=== PATIENT | female | born 2000 | race Caucasian/White ===

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

== ENCOUNTER → 2022-06-04 12:13 | Outpatient (BNVA) | payer OTHER, MEDICAID, SELFPAY | PROVIDERS: Visit Provider Nurse Practitioner Family | DX: N93.9 Abnormal uterine and vaginal bleeding, unspecified (principal) | CPT/HCPCS: 81025; 85018 ==

== ENCOUNTER → 2023-01-07 10:44 | Outpatient (BNVA) | payer MEDICAID, SELFPAY | PROVIDERS: Visit Provider Nurse Practitioner | DX: R05.9 Cough, unspecified (principal); B34.9 Viral infection, unspecified | CPT/HCPCS: 87400; 87426 ==

== ENCOUNTER → 2023-06-09 16:28 | Outpatient (BNVA) | payer OTHER, SELFPAY | PROVIDERS: Visit Provider Nurse Practitioner Psychiatric/Mental Health | DX: Z03.89 Encounter for observation for other suspected diseases and conditions ruled out (principal); F32.2 Major depressive disorder, single episode, severe without psychotic features; F43.10 Post-traumatic stress disorder, unspecified | CPT/HCPCS: 81025 ==

== ENCOUNTER 2024-12-15 19:00 | Inpatient (IN) | payer BC, MEDICAID, SELFPAY ==
[2024-12-15] VITALS (60 sets, daily range): BP systolic 96–135; BP diastolic 51–87; PULSE 68–111; RESP 8–18; TEMP 36.6–36.9; O2SAT 92–99; BMI 32.3
[2024-12-15 11:17] LABS: Hematocrit 32.5 % (36-47); Hemoglobin 10.70 g/dL (11.27-16.99); Mean Corpuscular HGB Conc 32.9 g/dL (30-55); Mean Corpuscular Hemoglobin 27.8 pg (27-33); Mean Corpuscular Volume 84.4 fl (85-98); Nucleated Red Blood Cells % 0 %; Platelet Count 211 10^3/cmm (157-399); Red Blood Count 3.85 10^6/uL (3.85-5.65); White Blood Count 10.82 10^3/uL (3.29-11.43)
--- NOTE | 2024-12-15 12:45 | PM.OBGYHP ---
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 Patient had rupture membranes earlier this morning. Patient states that she started to feel some contractions but nothing significant or regular at this time. Kermit vaginal exam showed 2 cm dilation which was what she was in the office 3 days ago. Forebag was noted. Patient has had no complications during and has had excellent care. Present Details : 2 Para: 0 Labs Rubella: Immune RPR: Negative GBS: Negative Review of Systems Const: Denies: fever(s), chills or body aches Card: Denies: chest pain Resp: Denies: dyspnea or wheezing GI: Reports: abdominal pain; Denies: nausea, vomiting or diarrhea : Reports: dysuria, urinary frequency, urinary urgency and hematuria; Denies: flank pain Skin/Breast: Denies: rash Medications/Allergies Home Medications ?Medication ?Instructions ?Recorded ?Confirmed ?Last Taken ?Type escitalopram oxalate 20 mg tablet 20 mg PO DAILY #30 tabs 03/03/24 03/03/24 Unknown Rx famotidine 10 mg tablet 10 mg PO DAILY 12/15/24 12/15/24 12/15/24 08:30 History no.58-iron bisglycinate cap PO 12/15/24 12/15/24 08:30 History 10 mg iron-folic acid 400 mcg capsule Allergies Allergy/AdvReac Type Severity Reaction Status Date / Time Penicillins Allergy Unknown Verified 03/03/24 11:21 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 PFSH: Medical History (Updated 12/15/24 @ 12:50 by Baljinder Dee MD) MDD (major depressive disorder), single episode, severe Psychiatric care Social History Smoking and tobacco/nicotine status: unknown if used tobacco/nicotine Vitals/I&O/Wt Last Vital Signs Pulse 98 12/15/24 12:42 BP 117/77 12/15/24 12:42 O2 Del Method Room Air 12/15/24 10:30 Weight last 48 hrs Weight 82.781 kg Physical Exam Const: COMMON NORMALS: no acute distress, average body habitus and patient oriented x3 Resp: COMMON NORMALS: normal respiratory effort, No retractions and No use of accessory muscles Cardio: COMMON NORMALS: no JVD, regular rate and regular rhythm GI: OTHER: Gravid uterus Extremity: COMMON NORMALS: normal to inspection and no clubbing, cyanosis or edema Neuro: COMMON NORMALS: moves all extremities, no focal motor deficits and no sensory deficits noted Psych: COMMON NORMALS: mental status grossly normal and cooperative Skin: COMMON NORMALS: no rashes or lesions noted Data 12/15/24 11:00 Results Labs OB ([facility]): Hct, (36-47) 32.5 % L Today Hgb, (11.27-16.99) 10.70 g/dL L Today Plt Count, (157-399) 211 10^3/cmm Today HCG, Qual, (Negative) Negative 06/09/23 A&P Assessment and plan 1. Multigravida in third trimester: 2. 38 weeks gestation of : The patient has positive rupture membranes. Since patient had a forebag this was ruptured with an amnio hook. Patient request that we do minimal intervention to augment labor if at all possible so we will monitor at this time. Anticipate that she will progress without any further intervention at this time. Proceed with routine labor management. PDMP PDMP Reviewed: Not Reviewed Attestations Medical Necessity Statement*: Patient admitted for rupture membranes. Anticipate at least 1 midnight stay Coding Level of Care Code Acute Code for Chg Fwd Diagnoses Multigravida in third trimester Z34.83 38 weeks gestation of Z3A.38
--- NOTE | 2024-12-15 15:59 | ANES.PREANE2 ---
Pre-Anesthetic Assessment Height/Weight: Height 1.6 m Weight 82.781 kg Temp Pulse Resp BP O2 Del Method 98.3 F 90 18 123/79 Room Air 12/15/24 15:15 12/15/24 15:46 12/15/24 15:15 12/15/24 15:46 12/15/24 10:30 Epidural Familial anesthetic complications: None Was Beta Mohini taken within 24 hours: N/A Was Clonidine taken within 24 hours: N/A Last intake: 929 Solids Social No alcohol and No tobacco Exam alert, oriented x 3, clear to auscultation bilaterally and regular rate & rhythm Airway Submandibular: within normal limits Cervical ROM: within normal limits Mallampati: Class II Dentition: full History/ROS No significant history except as noted and No significant complaints Pulmonary Seasonal allergies CV/HEM None reported None reported Hepatic None reported GI Gastroesophageal Reflux Disease (Gestational) Metabolic None reported Musc/skel None reported Neuropsych Anxiety and Depression Anesthetic Plan ASA status: 2 Anesthesia: Anesthesia Evaluation, General and Regional (specify below) (Epidural) Risk of > 500 ml blood loss (7ml/kg in children): Yes, adequate IV access and fluids planned Medications/Allergies Home Medications ?Medication ?Instructions ?Recorded ?Confirmed ?Last Taken ?Type escitalopram oxalate 20 mg tablet 20 mg PO DAILY #30 tabs 03/03/24 03/03/24 Unknown Rx famotidine 10 mg tablet 10 mg PO DAILY 12/15/24 12/15/24 12/15/24 08:30 History no.58-iron bisglycinate cap PO 12/15/24 12/15/24 08:30 History 10 mg iron-folic acid 400 mcg capsule Allergies Allergy/AdvReac Type Severity Reaction Status Date / Time Penicillins Allergy Unknown Verified 03/03/24 11:21 [facility] Anesthesia Medical History (Updated 12/15/24 @ 12:50 by Baljinder Dee MD) MDD (major depressive disorder), single episode, severe Psychiatric care Social History Smoking and tobacco/nicotine status: unknown if used tobacco/nicotine Female Reproductive History : 2 Data Anesthesia 12/15/24 11:00 Short CBC 12/15/24 Range/Units 11:00 WBC 10.82 (3.29-11.43) 10^3/uL Hgb 10.70 L (11.27-16.99) g/dL Hct 32.5 L (36-47) % MCV 84.4 L (85-98) fl Plt Count 211 (157-399) 10^3/cmm Neut % (Auto) 67.0 % Neut # (Auto) 7.25 (1.8-7.7) 10^3/uL Blood Bank 12/15/24 11:00 Blood Type O Positive Rho(D) Type Rh positive Antibody Screen Negative
[2024-12-15] MEDS: ROPivacaine premix 200 MG/100 ML PREMIX 13 MG EPIDURAL (17:31)
--- NOTE | 2024-12-15 17:52 | P.ANES_ITS ---
Anesthesia Procedures Procedure/Date: 12/15/24 Epidural: Time Out Performed: Yes Consents Signed: Procedure Consent and NPO Consent Consent: requested by attending/covering physician, from patient, risks and benefits reviewed and patient agrees to proceed Lumbar Level: L3-L4 Epidural position: sitting Epidural procedure: sterile prep of area (betadine), 1% lidocaine to numb the area (3 mLs), neg for paresthesia, test dose given, 1.5% xylocaine 1:200k epi (3 mLs/ 2 mLs), placed PCEA, no systemic response, sterile dressing applied, L.U.D. no apparent complications and 0.2% Ropiavacaine @ mls/hr (13) Additional Comments: Attempt x2. CELINE 6cm, catheter threaded to 11cm. Negative aspiration for blood and CSF. 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
[2024-12-16] VITALS (41 sets, daily range): BP systolic 96–155; BP diastolic 56–95; PULSE 75–155; RESP 15–18; TEMP 36.4–36.9; O2SAT 98–99
[2024-12-16] MEDS: ROPivacaine premix 200 MG/100 ML PREMIX 13 MG EPIDURAL (00:35)
[2024-12-16] MEDS: oxytocin 30 UNIT/500 ML BAG 600 UNIT IV (03:23)
[2024-12-16] MEDS: benzocaine-menthol 78 gm Canister 1 SPRAY TOPICAL (05:05)
[2024-12-16] MEDS: PRENATAL VIT NO.130/IRON/FOLIC 1 EACH TABLET PO (05:05)
--- NOTE | 2024-12-16 06:35 | PC.NURSE ---
0635 Patient assisted to bathroom via wheelchair and transferred to toilet. Patient voided without difficulty; pericare performed, Tucks and Dermaplast applied; pad, underwear, and clean gown on. Patient transferred back to wheelchair and to OB12.
--- NOTE | 2024-12-16 07:43 | PM.DELIVERY ---
Delivery Note: Date of delivery: December 16, 2024 Pre-delivery diagnoses: Intrauterine , 38 weeks gestation Post-delivery diagnoses: Same, viable male Procedure: Spontaneous vaginal delivery Op report anesthesia: Epidural Estimated blood loss (mL): 200 Pre-Delivery Course: This is a 24-year-old G2, P1 that presented at 38 weeks 5 days with spontaneous rupture membranes. Patient had slowly progressed throughout the day as expected without the need for augmentation. Delivery: Once patient was completely dilated the patient was placed into the normal lithotomy position and started pushing with contractions. After 2 hours of pushing the patient was able to deliver infant's head followed by shoulders and body without difficulty. was placed onto mother's abdomen and after delay the cord was clamped and cut. Placenta was then delivered soon after. Review of the perineum did show a second-degree perineal tear. This was repaired with 2-0 Vicryl. At end of the procedure the uterus was firm and bleeding was managed. Post-Delivery Status: Stable A&P Assessment and plan 1. Spontaneous vaginal delivery: Proceed with routine care. PDMP PDMP Reviewed: Not Reviewed Coding Level of Care Code Acute Code for Chg Fwd Diagnoses Spontaneous vaginal delivery O80
--- NOTE | 2024-12-16 07:45 | PM.OBGYPN ---
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 The patient has been up and ambulated with assistance and has urinated without issues. Patient's pain is controlled and bleeding is appropriate. Patient denies any significant concerns this morning Labor: Station: -1 Amniotic Membrane Status: Leaking Monitor Mode: Palpation Contraction Pattern: Regular Post /CS: Patient comments OB post-: no complaints and pain well controlled [place] baby status: doing well [place] feeding status: exclusively breast feeding Vitals/I&O/Wt Last Vital Signs Temp 98.5 F 12/16/24 04:17 Pulse 103 H 12/16/24 07:05 Resp 16 12/16/24 07:05 BP 117/73 12/16/24 07:05 Pulse Ox 98 12/16/24 07:05 O2 Del Method Room Air 12/16/24 07:05 O2 Flow Rate 10 12/15/24 18:26 12/15/24 12/16/24 12/16/24 22:59 06:59 14:59 Intake Total 800 / 800 100 / 900 Output Total 600 / 600 Balance 800 / 800 -500 / 300 Weight last 48 hrs Weight 82.781 kg Physical Exam Const: COMMON NORMALS: no acute distress, average body habitus and patient oriented x3 Neck/C-Spine: COMMON NORMALS: no JVD Resp: COMMON NORMALS: normal respiratory effort, No retractions and No use of accessory muscles Cardio: COMMON NORMALS: no JVD, regular rate and regular rhythm RATE: regular rate RHYTHM: regular rhythm GI: OTHER: Uterus firm and below umbilicus Extremity: COMMON NORMALS: normal to inspection and no clubbing, cyanosis or edema Neuro: COMMON NORMALS: patient oriented x3, moves all extremities, no focal motor deficits and no sensory deficits noted Psych: COMMON NORMALS: mental status grossly normal and cooperative Skin: COMMON NORMALS: no rashes or lesions noted GENERAL SKIN EXAM: no rashes or lesions noted Urinary Catheter Management: Ross: Cath Placed During This Visit: yes, but has since been removed by the nurse Reason for Continuing Indwelling Catheter: Required Immobilization for Trauma or Surgery or Anesthesia Urinary Catheter Date of Insertion: 12/15/24 Urinary Catheter Time of Insertion: 18:10 Date Urinary Catheter Removed: 12/16/24 Time Urinary Catheter Discontinued: 01:10 Data 12/15/24 11:00 A&P Assessment and plan 1. Spontaneous vaginal delivery: Continue with routine care PDMP PDMP Reviewed: Not Reviewed Attestations Medical Necessity Statement*: Patient admitted for labor. Anticipate discharge tomorrow Coding Level of Care Code Acute Code for Chg Fwd Diagnoses Spontaneous vaginal delivery O80
[2024-12-16 16:49] LABS: Hematocrit 26.6 % (36-47); Hemoglobin 8.70 g/dL (11.27-16.99); Mean Corpuscular HGB Conc 32.7 g/dL (30-55); Mean Corpuscular Hemoglobin 28.0 pg (27-33); Mean Corpuscular Volume 85.5 fl (85-98); Platelet Count 191 10^3/cmm (157-399); Red Blood Count 3.11 10^6/uL (3.85-5.65); White Blood Count 12.37 10^3/uL (3.29-11.43)
[2024-12-17] MEDS: PRENATAL VIT NO.130/IRON/FOLIC 1 EACH TABLET PO (04:17)
[2024-12-17 04:18] VITALS: BP 127/81; PULSE 97; RESP 16; TEMP 36.5; O2SAT 98
--- NOTE | 2024-12-17 08:10 | ANE.PACU2 ---
Inpatient post-anesthesia follow up: Airway intact: Yes Vital signs: Temperature 98.0 F Pulse Rate 101 Respiratory Rate 16 Blood Pressure 111/71 Pulse Oximetry 98 Oxygen Delivery Me thod Room Air Oxygen Flow Rate 10 Fraction of Inspir ed Oxygen Hydration adequate: Yes Nausea and vomiting: No Pain level: 1 Mental status: Baseline Epidural Start/End: Epidural Start Date: 12/15/24 Epidural Start Time: 17:25 Epidural End Date: 12/16/24 Epidural End Time: 05:30
--- NOTE | 2024-12-17 09:37 | P.DS_ITS ---
Discharge Providers IMAGING TECHNOLOGIST Date of Admission: 12/15/24 19:00 Date of Discharge: 12/17/24 Attending Provider at Admission: Baljinder Dee MD Attending Provider at Discharge: Baljinder Dee MD Diagnoses at Discharge Discharge Diagnosis 1. Spontaneous vaginal delivery: Reason for Visit Reason for Visit: possible srom Hospital Course Hospital Course This is a 24-year-old that presented at 38 weeks 5 days with rupture of membranes. The patient had progressed to completion as expected and delivered a viable male without complication. Patient has had an unremarkable care. Patient does have anemia post delivery but any significant symptoms. Vital signs remained stable. Patient reports that she is breast- feeding without issues. Information Peripartum Data: Delivery Method: Vaginal Laceration description: Perineal - 2nd Degree Physical Exam Const: COMMON NORMALS: no acute distress, average body habitus and patient oriented x3 Neck/C-Spine: COMMON NORMALS: no JVD Resp: COMMON NORMALS: normal respiratory effort, No retractions and No use of accessory muscles Cardio: COMMON NORMALS: no JVD, regular rate and regular rhythm RATE: regular rate RHYTHM: regular rhythm GI: OTHER: Uterus firm and below umbilicus Extremity: COMMON NORMALS: normal to inspection and no clubbing, cyanosis or edema Neuro: COMMON NORMALS: patient oriented x3, moves all extremities, no focal motor deficits and no sensory deficits noted Psych: COMMON NORMALS: mental status grossly normal and cooperative Skin: COMMON NORMALS: no rashes or lesions noted GENERAL SKIN EXAM: no rashes or lesions noted Urinary Catheter Management: Ross: Cath Placed During This Visit: yes, but has since been removed by the nurse Reason for Continuing Indwelling Catheter: Required Immobilization for Trauma or Surgery or Anesthesia Urinary Catheter Date of Insertion: 12/15/24 Urinary Catheter Time of Insertion: 18:10 Date Urinary Catheter Removed: 12/16/24 Time Urinary Catheter Discontinued: 01:10 Discharge Data Studies Completed and Pending Laboratory Results WBC 12.37 10^3/uL (3.29-11.43) H 12/16/24 16:35 RBC 3.11 10^6/uL (3.85-5.65) L 12/16/24 16:35 Hgb 8.70 g/dL (11.27-16.99) L 12/16/24 16:35 Hct 26.6 % (36-47) L 12/16/24 16:35 MCV 85.5 fl (85-98) 12/16/24 16:35 MCH 28.0 pg (27-33) 12/16/24 16:35 MCHC 32.7 g/dL (30-55) 12/16/24 16:35 RDW 12.5 % (12.1-15.1) 12/16/24 16:35 Plt Count 191 10^3/cmm (157-399) 12/16/24 16:35 MPV 11.0 fL (7.4-10.4) H 12/16/24 16:35 Neut % (Auto) 67.0 % 12/15/24 11:00 Lymph % (Auto) 20.5 % 12/15/24 11:00 [place] % (Auto) 6.4 % 12/15/24 11:00 Eos % (Auto) 4.6 % 12/15/24 11:00 Baso % (Auto) 0.3 % 12/15/24 11:00 Neut # (Auto) 7.25 10^3/uL (1.8-7.7) 12/15/24 11:00 Lymph # (Auto) 2.2 10^3/uL (0.8-4.8) 12/15/24 11:00 [place] # (Auto) 0.7 10^3/uL (0.2-0.9) 12/15/24 11:00 Eos # (Auto) 0.5 10^3/uL (0.0-0.8) 12/15/24 11:00 Baso # (Auto) 0.0 10^3/uL (0.0-0.1) 12/15/24 11:00 Nucleated RBC % (auto) 0 % 12/15/24 11:00 Nucleated RBCs # 0.0 /100WBC 12/15/24 11:00 Blood Type O Positive 12/15/24 11:00 Rho(D) Type Rh positive 12/15/24 11:00 Antibody Screen Negative 12/15/24 11:00 Vitals Last Vital Signs Temp 97.7 F 12/17/24 04:18 Pulse 97 12/17/24 04:18 Resp 16 12/17/24 04:18 BP 127/81 12/17/24 04:18 Pulse Ox 98 12/17/24 04:18 O2 Del Method Room Air 12/17/24 04:18 O2 Flow Rate 10 12/15/24 18:26 Results Labs OB ([facility]): Blood Type O Positive 12/15/24 Antibody Screen Negative 12/15/24 Hct, (36-47) 26.6 % L 12/16/24 Hgb, (11.27-16.99) 8.70 g/dL L 12/16/24 Rho(D) Type Rh positive 12/15/24 Plt Count, (157-399) 191 10^3/cmm 12/16/24 HCG, Qual, (Negative) Negative 06/09/23 Discharge Plan Discharge Patient Disposition: Home Condition: Stable Prescriptions: Continued escitalopram oxalate 20 mg tablet 20 mg PO DAILY Qty: 30 2RF Rx Instructions: Take one tablet by mouth once daily famotidine 10 mg Tablet 10 mg PO DAILY PNV no.58-iron bisgly-folic ac 10-400 mg-mcg Capsule PO Discharge Order = DC NOW: Discharge Order (Routine); Ordered 12/17/24 Ordered By: Baljinder Dee Referrals: Baljinder Dee MD [Physician, Family Practice] - 6 Weeks Discharge Diet: Usual diet Discharge Activity: Limit activity as instructed Patient Instructions: Opioid Safety, Patient Portal & [facility] Instructions Discharge Attestations IMAGING TECHNOLOGIST Time Spent in Discharge Care*: less than 30 min Coding Level of Care Code Acute Code for Chg Fwd Diagnoses Spontaneous vaginal delivery O80
[2024-12-17 10:41] VITALS: BP 114/77; PULSE 102; RESP 17; TEMP 36.5; O2SAT 98
[2024-12-17 12:25] VITALS: BP 111/71; PULSE 101; RESP 16; TEMP 36.7; O2SAT 98
[2024-12-17 12:35] VITALS: BP 111/71; PULSE 101; RESP 16; TEMP 36.7; O2SAT 98
== END 2024-12-17 12:35 | disposition home or self-care (01) | DRG 807 ==
LOC: OPOB 23:32 → OBGYN 23:32
PROVIDERS: Absent Provider Family Medicine; Admitting Provider Family Medicine; Visit Provider Family Medicine
DX: O70.1 Second degree perineal laceration during delivery (principal); Z37.0 Single live birth; Z3A.38 38 weeks gestation of pregnancy; O99.344 Other mental disorders complicating childbirth; F32.9 Major depressive disorder, single episode, unspecified; F41.9 Anxiety disorder, unspecified; K21.9 Gastro-esophageal reflux disease without esophagitis; O99.62 Diseases of the digestive system complicating childbirth; O90.81 Anemia of the puerperium; D64.9 Anemia, unspecified
CPT/HCPCS: 36415; 51702; 59025; 59409; 83986; 85025; 85027; 86850; 86900; 99211; J2590; J2795; J7030; J7121; J9999